=== PATIENT | male | born 1970 | race Caucasian/White ===

== ENCOUNTER 2017-08-26 07:01 | Emergency (ER) | payer BC, OTHER ==
[2017-08-26 07:07] VITALS: BP 144/77
--- NOTE | 2017-08-26 08:23 | ED ---
Niesha Shepard Nilda, scribed for Quoc Maria MD on 08/26/17 at 0725 . GI/ HPI - HPI Summary HPI Summary: This patient is a 47 year old M presenting to [facility] with a chief complaint of constant lower left groin pain that radiates to left testicle since 2 nights ago. The patient rates the pain 7/10 in severity. Symptoms aggravated by movement and alleviated by rest. Symptoms alleviated by rest. He denies swelling of testicles. - History of Current Complaint Chief Complaint: EDAbdPain Time Seen by Provider: 08/26/17 07:19 Stated Complaint: LT SIDE ABD PAIN Hx Obtained From: Patient Onset/Duration: Started Days Ago Timing: Constant Current Severity: Moderate Pain Intensity: 7 Location of Pain: Groin Additional Locations for Males: Testicles - left Associated Signs and Symptoms: Positive: Other: - denies testicular swelling Aggravating Factor(s): Movement Alleviating Factor(s): Rest - Allergy/Home Medications Allergies/Adverse Reactions: Allergies Allergy/AdvReac Type Severity Reaction Status Date / Time No Known Allergies Allergy Verified 06/09/13 14:12 PMH/Surg Hx/FS Hx/Imm Hx Sensory History: Denies: Hx Legally Blind EENT History: Denies: Hx Deafness Infectious Disease History: Yes Infectious Disease History: Denies: Traveled Outside the [place] in Last 30 Days - Family History Known Family History: Negative: Hypertension, Diabetes - Social History Substance Use Type: Reports: None Review of Systems Negative: Shortness Of Breath Positive: pain - lower left groin pain that radiates to left testicle, other - negative testicular swelling All Other Systems Reviewed And Are Negative: Yes Physical Exam Triage Information Reviewed: Yes Vital Signs On Initial Exam: Initial Vitals Temp Pulse Resp BP Pulse Ox 97.3 F 94 22 144/77 97 08/26/17 07:05 08/26/17 07:05 08/26/17 07:05 08/26/17 07:05 08/26/17 07:05 Vital Signs Reviewed: Yes Appearance: Positive: Well-Appearing, No Pain Distress Skin: Positive: Warm, Skin Color Reflects Adequate Perfusion, Dry Head/Face: Positive: Normal Head/Face Inspection Eyes: Positive: Normal ENT: Positive: Normal ENT inspection Neck: Positive: Supple, Nontender Respiratory/Lung Sounds: Positive: Clear to Auscultation, Breath Sounds Present Cardiovascular: Positive: RRR Abdomen Description: Positive: Nontender, Soft Male Genital Exam: Positive: inguinal tenderness - Left sided inguinal hernia, nothing protruding Musculoskeletal: Positive: Normal Neurological: Positive: Normal Psychiatric: Positive: Normal, Affect/Mood Appropriate Diagnostics - Vital Signs Vital Signs Temp Pulse Resp BP Pulse Ox 08/26/17 07:05 97.3 F 94 22 144/77 97 - Laboratory Lab Statement: Any lab studies that have been ordered have been reviewed, and results considered in the medical decision making process. GIGU Course/Dx - Course Course Of Treatment: Mr. Santillan has an inguinal hernia that has nothing though it at this point. He is advised rest then light duty and surgical F/U. - Diagnoses Provider Diagnoses: Hernia Discharge - Discharge Plan Condition: Stable Disposition: HOME Forms: *Work Release Referrals: Gregg Parker MD [Medical Doctor] - 3 Days Additional Instructions: Take ibuprofen for pain. Return to the ED for changing or worsening symptoms. The documentation as recorded by the Niesha tellez Nilda accurately reflects the service I personally performed and the decisions made by , Quoc Maria MD.
== END 2017-08-26 08:06 | disposition home or self-care (01) ==
LOC: ED 07:01
DX: K46.9 Unspecified abdominal hernia without obstruction or gangrene (principal)
CPT/HCPCS: 99282

== ENCOUNTER 2017-11-08 21:21 | Emergency (ER) | payer BC ==
--- OUTSIDE RECORDS SUMMARY | 2017-11-08 21:31 | XMS REPORT ---
:1970 External Reference #:[id number] Author Organization [employer] Address [address] [place] [address] Phone [phone] Care Team Providers Name Role Phone Braydon Uribe MD Care Team Information Museum Specialist Unavailable Braydon Uribe MD Primary Care Physician Unavailable Payers Type Date Identification Numbers Payment Provider Subscriber Commercial Policy Number: [id number] BS [employer] Santillan PayID: [id number] [address] [address] [place] [address] Problems Description No Information Family History Date Family Member(s) Problem(s) Comments Father due to Cancer () Mother Unremarkable Social History Type Date Description Comments Cigarette Use Used To Smoke Cigarettes But Quit. ETOH Use Current Alcohol Use - 1-3 Days A Week. Allergies, Adverse Reactions, Alerts Date Description Reaction Status Severity Comments 09/02/2017 NKDA active Medications Medication Date Status Form Strength Qnty SIG Indications Ordering Provider No Active 09/02/2017 Active Unknown Medications Vital Signs Date Vital Result Comment 09/30/2017 Weight 227.00 lb Height 73 inches 6'1" BMI (Body Mass Index) 29.9 kg/m2 BP Systolic 145 mmHg BP Diastolic 89 mmHg Heart Rate 95 /min O2 % BldC Oximetry 99 % Body Temperature 97.6 F Pain Level 0 09/02/2017 Weight 225.00 lb Height 73 inches 6'1" BMI (Body Mass Index) 29.7 kg/m2 BP Systolic 136 mmHg BP Diastolic 80 mmHg Heart Rate 63 /min O2 % BldC Oximetry 99 % Body Temperature 97.1 F [place] Score 7 Neck Circumference in inches 17 Pain Level 0 Results Description No Information Procedures Date CPT Code Description Status 09/18/2017 79846 Sleep Staging 4Or More Para Completed Encounters Type Date Location Provider CPT E/M Dx Office Visit 09/30/2017 11:15a [place] [facility] Verónica Mora M.D. [id number] G47.33 Office Visit 09/02/2017 11:15a [place] [facility] Verónica Mora M.D. [id number] G47.9 R06.83 G47.30 Plan of Care No Information Available
[2017-11-08 21:33] VITALS: BP 128/84
--- NOTE | 2017-11-08 21:34 | UC ---
Ear Complaint HPI - HPI Summary HPI Summary: Pt presents with cold symptoms for 1 week and left ear pain that started earlier today. He tells me that he has a history of ear infections and one time recently had one that he left untreated and his perforated his TM in his left ear. He does have a mild dry cough and sinus congestion for the last week. Denies fever, chills, SOB, chest pain, abdominal pain, N/V/D/C - History of Current Complaint Chief Complaint: UCGeneralIllness Stated Complaint: LEFT EAR COMPLAINT, SORE THROAT Time Seen by Provider: 11/08/17 21:34 Hx Obtained From: Patient Onset/Duration: Gradual Onset Severity Initially: Mild Severity Currently: Mild Pain Intensity: 3 Pain Scale Used: 0-10 Numeric - Allergies/Home Medications Allergies/Adverse Reactions: Allergies Allergy/AdvReac Type Severity Reaction Status Date / Time No Known Allergies Allergy Verified 11/08/17 21:27 PMH/Surg Hx/FS Hx/Imm Hx Previously Healthy: Yes GI/ History: Gastroesophageal Reflux - Surgical History Surgical History: Yes Surgery Procedure, Year, and Place: inguinal hernia repair 2016 - Family History Known Family History: Positive: Unknown - Social History Occupation: Employed Full-time Lives: With Family Alcohol Use: Daily Alcohol Amount: 6pack/ day Substance Use Type: None Smoking Status (MU): Never Smoked Tobacco - Immunization History Most Recent Influenza Vaccination: never Review of Systems Constitutional: Negative Skin: Negative Eyes: Negative ENT: Ear Ache, Nasal Discharge, Sinus Congestion, Sinus Pain/Tenderness Respiratory: Cough Cardiovascular: Negative Gastrointestinal: Negative Neurological: Negative Psychological: Negative All Other Systems Reviewed And Are Negative: Yes Physical Exam Triage Information Reviewed: Yes Appearance: Well-Appearing, Well-Nourished Vital Signs: Initial Vital Signs Temp 97.5 F 11/08/17 21:28 Pulse 97 11/08/17 21:28 Resp 16 11/08/17 21:28 BP 128/84 11/08/17 21:28 Pulse Ox 99 11/08/17 21:28 Vital Signs Reviewed: Yes Eyes: Positive: Conjunctiva Clear. Negative: Conjunctiva Inflamed, Discharge ENT: Positive: Hearing grossly normal, Pharynx normal, Nasal congestion, Nasal drainage, TM bulging - Left, TM red - Left, Sinus tenderness, Uvula midline. Negative: Pharyngeal erythema, TM dull, Tonsillar swelling, Tonsillar exudate Neck: Positive: Supple, Nontender, No Lymphadenopathy Respiratory: Positive: Chest non-tender, Lungs clear, Normal breath sounds, No respiratory distress, No accessory muscle use Cardiovascular: Positive: RRR, No Murmur, Pulses Normal Neurological: Positive: Alert Psychological: Positive: Age Appropriate Behavior Skin: Negative: rashes Ear Complaint Course/Dx - Course Course Of Treatment: Otitis media left ear - Differential Dx/Diagnosis Differential Diagnosis/HQI/PQRI: Cerumen Impaction, Otitis Externa, Otitis Media , Perforated TM, URI Provider Diagnoses: Otitis media left ear Discharge - Discharge Plan Condition: Stable Disposition: HOME Prescriptions: Amoxicillin PO (*) [Amoxicillin 500 MG CAP*] 500 mg PO Q12H #14 cap Patient Education Materials: Otitis Media (ED) Referrals: No Primary Care Phys,NOPCP [Primary Care Provider] - Additional Instructions: If you develop a fever, SOB, chest pain, new or worsening symptoms - please call your PCP or go to the ED.
[2017-11-08] MEDS ORDERED: Amoxicillin PO (*) 500 MG CAP PO ONE (21:38)
== END 2017-11-08 21:52 | disposition home or self-care (01) ==
LOC: UCEAST 21:21 → MERGE 21:21 → UCEAST 21:52
DX: H66.92 Otitis media, unspecified, left ear (principal)
CPT/HCPCS: 99202; A9270-GY; G0463